=== PATIENT | male | born 1965 | race Two or more races ===

== ENCOUNTER 2018-04-04 14:37 | Emergency (ER) | payer BC ==
[2018-04-04 15:22] LABS: Bilirubin Negative (Negative); Blood, Urine Trace (Negative); Clarity Clear (Clear); Glucose, Urine (Dipstick) Negative (Negative); Leukocyte Negative (Negative); Nitrite Negative (Negative); Protein, Urine (Dipstick) Negative (Neg-Trace); Urobilinogen 0.2 mg/dL (0.2-1.0)
[2018-04-04 15:24] LABS: Bacteria/HPF 1+ HPF (None Seen); Crystals/HPF 1+ AMORPH PHOS HPF (Negative); RBC/HPF 0-3 HPF (0-3); Squamous Epithelial 0-3 HPF (0-3); WBC/HPF None Seen HPF (0-3)
[2018-04-04 15:45] LABS: ALT (SGPT) 40 U/L (8-55); AST (SGOT) 31 U/L (5-34); Albumin 4.2 g/dL (3.5-5.0); Alkaline Phosphatase 48 U/L (40-150); Anion Gap 10 mmol/L (10-20); BUN (Urea Nitrogen) 18 mg/dL (8.4-25.7); Bilirubin, Total 0.4 mg/dL (0.2-1.2); Calc. Creatinine Clearance 0 mL/min (70-130); Calcium 9.6 mg/dL (7.8-10.44); Carbon Dioxide 28 mmol/L (22-29); Chloride 105 mmol/L (98-107); Estimated GFR-MDRD 69; Globulin 2.3 g/dL (2.4-3.5); Glucose 98 mg/dL (70-105); Potassium 3.7 mmol/L (3.5-5.1); Protein, Total 6.5 g/dL (6.0-8.3); Sodium 139 mmol/L (136-145)
[2018-04-04 15:54] LABS: #Basophils 0.1 thou/uL (0.0-0.2); #Lymphocytes 2.1 thou/uL (1.20-3.40); #Monocytes 0.5 thou/uL (0.11-0.59); #Neutrophils 3.4 thou/uL (1.40-6.50); %Basophils 1.1 % (0.0-1.0); %Eosinophils 0.7 % (0.0-10.0); %Lymphocytes 34.8 % (21.0-51.0); %Monocytes 8.3 % (0.0-10.0); %Neutrophils 55.2 % (42.0-75.0); Hemoglobin 13.7 g/dL (14.0-18.0); Mean Corpuscular HGB CONC 34.9 g/dL (32.0-36.0); Mean Corpuscular Hemoglobin 32.2 pg (27.0-31.0); Mean Corpuscular Volume 92.2 fL (78.0-98.0); Mean Platelet Volume 8.5 fL (7.4-10.4); Platelet Count 169 thou/uL (130-400); RBC Distribution Width 10.6 % (11.5-14.5); Red Blood Cell (RBC) Count 4.25 mill/uL (4.70-6.10); White Blood Cell (WBC) Count 6.1 thou/uL (4.8-10.8)
--- NOTE | 2018-04-04 16:05 | CT ---
ABDOMEN AND PELVIC CT SCAN WITHOUT IV CONTRAST: 04/04/18 HISTORY: 52-year-old male with history of lower abdominal back pain. The lung bases are clear. The liver, somewhat small contracted gallbladder, pancreas, spleen, adrenal glands, are unremarkable as evaluated without IV contrast. There is at least one dilated loop of wha t appears to be jejunum in the left upper quadrant with some minimal wall thickening, nonspecific, po ssibly in association with some jejunitis. No renal calculus or acute obstruction. No CT evidence for acute appendicitis. The urinary bladder is somewhat contracted although the wall appears to be jovani rderline thick, this may just be related to the contraction, although the possibility of cystitis can not be excluded. No significant pericystic fat stranding around the bladder. IMPRESSION: No overt calculus. Possible mild bladder wall thickening. There is at least one loop of jejunum wh ich is minimally dilated and appears to have some wall thickening possibly some jejunitis/enteritis, nonspecific. Exam is limited without IV and oral contrast. No definitive CT evidence for acute appendicitis. POS: [facility]O
== END 2018-04-04 16:20 | disposition home or self-care (01) ==
LOC: SCSER 14:37
DX: R10.9 Unspecified abdominal pain (principal); I10 Essential (primary) hypertension; Z79.899 Other long term (current) drug therapy
CPT/HCPCS: 74176; 80053; 81003; 81015; 85025; 87086

== ENCOUNTER 2018-04-05 10:56 | Emergency (ER) | payer BC | END 2018-04-05 11:30 | disposition home or self-care (01) | LOC: SCSER 10:56 | DX: B02.9 Zoster without complications (principal); I10 Essential (primary) hypertension; Z79.899 Other long term (current) drug therapy | CPT/HCPCS: 99282 ==